=== PATIENT | male | born 1945 | race Caucasian/White ===

== ENCOUNTER 2022-03-08 07:50 | Emergency (ER) | payer MEDICARE ==
[~2022-03-08] VITALS: Ht 170.2 cm; Wt 75.0 kg
[2022-03-08] VITALS (8 sets, daily range): BP systolic 140–201; BP diastolic 81–157
[2022-03-08 08:26] LABS: HEMATOCRIT 42.1 % (39.0-50.0); IMMATURE GRANULOCYTES 0.2 % (0.0-5.0); MEAN CORPUSCULAR HGB 31.5 pG CALC (26.0-32.0); MEAN CORPUSCULAR HGB CONC 33.3 g/dL CAL (32.0-36.0); NEUT# 3.73 thou/uL (1.82-7.42); RED BLOOD COUNT 4.45 mill/uL (4.70-6.10); RED CELL DISTRI WIDTH 14.3 % (11.5-15.5)
[2022-03-08 08:27] LABS: MEAN CELL VOLUME 94.6 fL CALC (80.0-100.0)
[2022-03-08 08:42] LABS: BILIRUBIN, TOTAL 1.6 mg/dL (0.0-1.4); CREATININE 1.5 mg/dL (0.7-1.3); POTASSIUM 3.3 mmol/l (3.5-5.1); TOTAL PROTEIN 6.5 g/dL (6.3-8.2)
[2022-03-08 10:00] LABS: URINE BILIRUBIN - DIPSTICK NEGATIVE (NEGATIVE); URINE BLOOD DIPSTICK NEGATIVE (NEGATIVE); URINE COLOR YELLOW; URINE GLUCOSE - DIPSTICK 100 mg/dL (NEGATIVE); URINE KETONE NEGATIVE (NEGATIVE); URINE LEUK ESTERASE NEGATIVE (NEGATIVE); URINE PH 5.5 (4.5-8.0); URINE PROTEIN - DIPSTICK NEGATIVE (NEG-TRACE); URINE SPECIFIC GRAVITY 1.025
[2022-03-08 10:02] LABS: URINE NITRITE - DIPSTICK NEGATIVE (Negative)
== END 2022-03-08 11:56 | disposition left against medical advice (07) ==
LOC: ED 07:50
PROVIDERS: Family Medicine
DX: R55 Syncope and collapse (principal); I10 Essential (primary) hypertension; R53.1 Weakness; S09.90XA Unspecified injury of head, initial encounter; W17.89XA Other fall from one level to another, initial encounter; Z91.81 History of falling; Z53.29 Procedure and treatment not carried out because of patient's decision for other reasons